=== PATIENT | male | born 1965 | race Caucasian/White ===

== ENCOUNTER 2019-06-03 09:21 | Inpatient (IN) | payer OTHER ==
[2019-06-03] MEDS: SOD CHLORIDE 0.9% 1,000 ML IV (10:22)
[2019-06-03] MEDS: PANTOPRAZOLE 40 MG INJ IV (10:22)
[2019-06-03] MEDS: ONDANSETRON 4 MG INJ IV ×2 (10:22→16:02)
[2019-06-03] MEDS: LORAZEPAM 2 MG INJ IV ×2 (10:22→19:45)
[2019-06-03 10:33] LABS: ANION GAP 28 (5-13); Estimated GFR > 60 mL/min (>60)
[2019-06-03 10:34] LABS: BLOOD UREA NITROGEN 33 mg/dl (7-20); CALCIUM 7.7 mg/dl (8.4-10.2); CARBON DIOXIDE 15 mmol/L (21-31); CHLORIDE 92 mmol/L (97-110); GLUCOSE 98 mg/dl (70-220); POTASSIUM 3.4 mmol/L (3.5-5.1); SODIUM 135 mmol/L (135-144)
[2019-06-03 10:46] LABS: TROPONIN-I < 0.012 ng/ml (0.000-0.120)
[2019-06-03 11:36] LABS: WHITE BLOOD COUNT 8.8 10^3/ul (4.8-10.8)
[2019-06-03 11:36] LABS: ABNORMAL IP MESSAGE 1; HEMATOCRIT 8.7 % (42.0-52.0); MEAN CORPUSCULAR HEMOGLOBIN 18.2 pg (29.0-33.0); MEAN CORPUSCULAR HGB CONC 25.3 g/dl (32.0-37.0); MEAN CORPUSCULAR VOLUME 71.9 fl (82.0-101.0); MEAN PLATELET VOLUME 10.6 fl (7.4-10.4); NUCLEATED RED BLOOD CELLS% 1.1 /100WBC (0.0-0.0); PLATELET COUNT 171 10^3/UL (140-415); POSITIVE DIFF @See below; RED BLOOD COUNT 1.21 10^6/ul (4.70-6.10); RED CELL DISTRIBUTION WIDTH 23.9 % (11.5-14.5)
[2019-06-03 11:40] LABS: ADD MAN DIFF? YES; HEMOGLOBIN 2.2 g/dl (14.0-18.0); PATH REVIEW? YES
[2019-06-03 12:11] LABS: ANISOCYTOSIS 2+ (0-0); BAND NEUTROPHILS % (M) 1 % (0-4); ERYTHROBLAST% (NRBC) (M) 1 % (0-0); HYPOCHROMASIA 3+ (0-0); LYMPHOCYTES #M 0.4 10^3/ul (0.8-2.9); LYMPHOCYTES % (M) 5 % (15-51); MICROCYTOSIS 2+ (0-0); MONOCYTE #M 0.7 10^3/ul (0.3-0.9); MONOCYTES % (M) 9 % (0-11); PLATELET ESTIMATE NORMAL; POIKILOCYTOSIS 1+ (0-0); POLYCHROMASIA 3+ (0-0); SEG NEUT #M 7.5 10^3/ul (1.6-7.5); SEGMENTED NEUTROPHILS (M) % 85 % (39-77); SMUDGE%M 2 % (0-0); TEAR DROP CELLS 1+ (0-0)
[2019-06-03] MEDS: CALCIUM GLUCONATE 10% 1 GM in DEXTROSE 5% 100 ML IVPB (12:13)
[2019-06-03] MEDS: OCTREOTIDE 50 MCG in SOD CHLORIDE 0.9% 25 ML IVPB (12:40)
[2019-06-03] MEDS: PANTOPRAZOLE IV 80 MG in SOD CHLORIDE 0.9% 100 ML IV ×2 (12:40→14:00)
[2019-06-03] MEDS: OCTREOTIDE 500 MCG in SOD CHLORIDE 0.9% 49 ML IV (13:04)
[2019-06-03 13:08] LABS: INR 1.68; PROTIME 19.9 Sec (11.9-14.9); PT RATIO 1.6
[2019-06-03 13:09] LABS: PARTIAL THROMBOPLASTIN TIME 36.7 Sec (23.0-35.0)
[2019-06-03] MEDS ORDERED: ALBUTEROL 0.083% (NEB) 2.5 MG/3 ML AMP NEB (13:30)
[2019-06-03 13:36] LABS: ALANINE AMINOTRANSFERASE 35 IU/L (13-69); ALBUMIN 3.2 g/dl (3.3-4.9); ALKALINE PHOSPHATASE 70 IU/L (42-121); ASPARTATE AMINO TRANSFERASE 74 IU/L (15-46); BILIRUBIN,INDIRECT 0.7 mg/dl (0-1.1); BILIRUBIN,TOTAL 0.7 mg/dl (0.2-1.3); TOTAL PROTEIN 6.4 g/dl (6.1-8.1)
[2019-06-03] MEDS: CEFTRIAXONE 1 GM/50 ML (PMX) 50 ML IVPB (13:52)
[2019-06-03] MEDS: OCTREOTIDE 1 MG in DEXTROSE 5% 95 ML IV ×2 (14:00→20:44)
[2019-06-03 15:47] LABS: IMMEDIATE SPIN CROSSMATCH 1
[2019-06-03] MEDS: D5W-0.45 NACL + KCL 20 MEQ 1,000 ML IV (15:51)
[2019-06-03 16:37] LABS: CREATINE KINASE 128 IU/L (23-200)
[2019-06-03 16:46] LABS: CK INDEX 2.2
[2019-06-03 16:48] LABS: CK-MB 2.76 ng/ml (0.0-2.4)
[2019-06-03 16:51] LABS: TROPONIN-I < 0.012 ng/ml (0.000-0.120)
[2019-06-03] MEDS: FUROSEMIDE 20 MG INJ IV (19:26)
[2019-06-03 19:31] LABS: LACTIC ACID 2.7 mmol/L (0.5-2.0)
[2019-06-03 21:46] LABS: CREATINE KINASE 159 IU/L (23-200)
[2019-06-03 21:59] LABS: CK INDEX 1.8; TROPONIN-I < 0.012 ng/ml (0.000-0.120)
[2019-06-03 22:00] LABS: CK-MB 2.93 ng/ml (0.0-2.4)
[2019-06-04] MEDS: PANTOPRAZOLE IV 80 MG in SOD CHLORIDE 0.9% 100 ML IV ×3 (00:22→20:55)
[2019-06-04 01:02] LABS: HEMATOCRIT 27.6 % (42.0-52.0); HEMOGLOBIN 8.9 g/dl (14.0-18.0)
[2019-06-04 01:13] LABS: LACTIC ACID 1.5 mmol/L (0.5-2.0)
[2019-06-04 05:21] LABS: ADD MAN DIFF? NO
[2019-06-04 05:29] LABS: ABNORMAL IP MESSAGE 1; BASOPHILS % 0.1 % (0.0-2.0); HEMATOCRIT 28.8 % (42.0-52.0); HEMOGLOBIN 9.3 g/dl (14.0-18.0); LYMPHOCYTES # 0.5 10^3/ul (0.8-2.9); LYMPHOCYTES % 6.7 % (15.0-51.0); MEAN CORPUSCULAR HEMOGLOBIN 25.3 pg (29.0-33.0); MEAN CORPUSCULAR HGB CONC 32.3 g/dl (32.0-37.0); MEAN CORPUSCULAR VOLUME 78.3 fl (82.0-101.0); MEAN PLATELET VOLUME 9.5 fl (7.4-10.4); MONOCYTE # 0.7 10^3/ul (0.3-0.9); MONOCYTES % 8.9 % (0.0-11.0); NEUTROPHIL # 6.1 10^3/ul (1.6-7.5); NEUTROPHILS % 83.8 % (39.0-77.0); NUCLEATED RED BLOOD CELLS # 0.1 10^3/ul (0.0-0.0); NUCLEATED RED BLOOD CELLS% 1.9 /100WBC (0.0-0.0); POSITIVE DIFF @See below; RED BLOOD COUNT 3.68 10^6/ul (4.70-6.10); RED CELL DISTRIBUTION WIDTH 20.4 % (11.5-14.5)
[2019-06-04 05:29] LABS: WHITE BLOOD COUNT 7.3 10^3/ul (4.8-10.8)
[2019-06-04 05:41] LABS: LACTIC ACID 1.2 mmol/L (0.5-2.0)
[2019-06-04 05:58] LABS: ALANINE AMINOTRANSFERASE 58 IU/L (13-69); ALKALINE PHOSPHATASE 65 IU/L (42-121); ANION GAP 11 (5-13); ASPARTATE AMINO TRANSFERASE 132 IU/L (15-46); BILIRUBIN,INDIRECT 1.1 mg/dl (0-1.1); BILIRUBIN,TOTAL 1.1 mg/dl (0.2-1.3); BLOOD UREA NITROGEN 32 mg/dl (7-20); CALCIUM 7.3 mg/dl (8.4-10.2); CARBON DIOXIDE 29 mmol/L (21-31); CHLORIDE 97 mmol/L (97-110); CREATININE 0.92 mg/dl (0.61-1.24); Estimated GFR > 60 mL/min (>60); GLUCOSE 146 mg/dl (70-220); POTASSIUM 3.1 mmol/L (3.5-5.1); SODIUM 137 mmol/L (135-144); TOTAL PROTEIN 6.3 g/dl (6.1-8.1)
[2019-06-04 06:08] LABS: MAGNESIUM 0.7 mg/dl (1.7-2.5)
[2019-06-04] MEDS: POTASSIUM CHLORIDE 100 ML IVPB ×3 (08:30→10:59)
[2019-06-04] MEDS: MAGNESIUM SULFATE 4 GM/100 ML 100 ML IVPB (08:32)
[2019-06-04] MEDS: FUROSEMIDE 20 MG INJ IV (08:32)
[2019-06-04] MEDS: ENALAPRILAT 1.25 MG INJ IV (08:33)
[2019-06-04] MEDS: D5W-0.45 NACL + KCL 20 MEQ 1,000 ML IV (08:33)
[2019-06-04 08:43] LABS: ANISOCYTOSIS 1+ (0-0); BAND NEUTROPHILS #M 0.1 10^3/ul (0.0-0.6); BAND NEUTROPHILS % (M) 2 % (0-4); ERYTHROBLAST% (NRBC) (M) 7 % (0-0); HYPOCHROMASIA 1+ (0-0); LYMPHOCYTES #M 0.4 10^3/ul (0.8-2.9); LYMPHOCYTES % (M) 6 % (15-51); MICROCYTOSIS 1+ (0-0); OVALOCYTES 1+ (0-0); PLATELET ESTIMATE DECREASED; POIKILOCYTOSIS 1+ (0-0); POLYCHROMASIA 3+ (0-0); SEG NEUT #M 6.7 10^3/ul (1.6-7.5); SEGMENTED NEUTROPHILS (M) % 92 % (39-77); SMUDGE%M 10 % (0-0); TARGET CELLS 1+ (0-0)
[2019-06-04 11:22] LABS: PLATELET COUNT 90 10^3/UL (140-415)
[2019-06-04 14:40] LABS: ANION GAP 6 (5-13); BLOOD UREA NITROGEN 26 mg/dl (7-20); CALCIUM 6.7 mg/dl (8.4-10.2); CARBON DIOXIDE 30 mmol/L (21-31); CHLORIDE 95 mmol/L (97-110); CREATININE 0.78 mg/dl (0.61-1.24); Estimated GFR > 60 mL/min (>60); GLUCOSE 260 mg/dl (70-220); MAGNESIUM 1.5 mg/dl (1.7-2.5); SODIUM 131 mmol/L (135-144)
[2019-06-04 14:41] LABS: POTASSIUM 2.8 mmol/L (3.5-5.1)
[2019-06-04] MEDS: MAGNESIUM CITRATE 300 ML BTL PO ×2 (15:00→20:55)
[2019-06-04] MEDS: MAGNESIUM SULFATE 2 GM/50 ML 50 ML IVPB (15:55)
[2019-06-04] MEDS: OCTREOTIDE 1 MG in DEXTROSE 5% 95 ML IV (15:55)
[2019-06-04 17:21] LABS: POTASSIUM 3.3 mmol/L (3.5-5.1)
[2019-06-04] MEDS: POLYETHYLENE GLYCOL 3350 119 GM POWDER PO ×2 (17:57→18:41)
[2019-06-05] MEDS: PANTOPRAZOLE IV 80 MG in SOD CHLORIDE 0.9% 100 ML IV ×2 (05:45→16:25)
[2019-06-05] MEDS: hydrALAzine 20 MG INJ IV ×2 (05:46→12:40)
[2019-06-05 06:22] LABS: ADD MAN DIFF? NO
[2019-06-05 06:24] LABS: ABNORMAL IP MESSAGE 1; BASOPHILS % 0.3 % (0.0-2.0); EOSINOPHILS % 0.3 % (0.0-7.0); HEMATOCRIT 29.5 % (42.0-52.0); HEMOGLOBIN 9.4 g/dl (14.0-18.0); LYMPHOCYTES # 0.5 10^3/ul (0.8-2.9); LYMPHOCYTES % 6.1 % (15.0-51.0); MEAN CORPUSCULAR HEMOGLOBIN 25.5 pg (29.0-33.0); MEAN CORPUSCULAR HGB CONC 31.9 g/dl (32.0-37.0); MEAN CORPUSCULAR VOLUME 80.2 fl (82.0-101.0); MONOCYTE # 0.8 10^3/ul (0.3-0.9); MONOCYTES % 11.3 % (0.0-11.0); NEUTROPHILS % 81.5 % (39.0-77.0); NUCLEATED RED BLOOD CELLS # 0.1 10^3/ul (0.0-0.0); NUCLEATED RED BLOOD CELLS% 0.8 /100WBC (0.0-0.0); POSITIVE DIFF @See below; RED BLOOD COUNT 3.68 10^6/ul (4.70-6.10); RED CELL DISTRIBUTION WIDTH 20.7 % (11.5-14.5)
[2019-06-05 06:24] LABS: WHITE BLOOD COUNT 7.4 10^3/ul (4.8-10.8)
[2019-06-05 06:34] LABS: PLATELET COUNT 94 10^3/UL (140-415)
[2019-06-05 06:47] LABS: ALANINE AMINOTRANSFERASE 49 IU/L (13-69); ALBUMIN/GLOBULIN RATIO 0.83; ALKALINE PHOSPHATASE 74 IU/L (42-121); ANION GAP 4 (5-13); ASPARTATE AMINO TRANSFERASE 76 IU/L (15-46); BILIRUBIN,INDIRECT 1.1 mg/dl (0-1.1); BILIRUBIN,TOTAL 1.1 mg/dl (0.2-1.3); BLOOD UREA NITROGEN 18 mg/dl (7-20); CALCIUM 7.2 mg/dl (8.4-10.2); CARBON DIOXIDE 32 mmol/L (21-31); CHLORIDE 100 mmol/L (97-110); CREATININE 0.65 mg/dl (0.61-1.24); Estimated GFR > 60 mL/min (>60); GLUCOSE 128 mg/dl (70-220); MAGNESIUM 1.5 mg/dl (1.7-2.5); SODIUM 136 mmol/L (135-144); TOTAL PROTEIN 6.6 g/dl (6.1-8.1)
[2019-06-05 07:16] LABS: POTASSIUM 2.9 mmol/L (3.5-5.1)
[2019-06-05] MEDS: POTASSIUM CHLORIDE (SR) 20 MEQ TAB PO (08:00)
[2019-06-05] MEDS: FUROSEMIDE 20 MG INJ IV (10:05)
[2019-06-05] MEDS: D5W-0.45 NACL + KCL 20 MEQ 1,000 ML IV (10:07)
[2019-06-05 11:46] LABS: IMMEDIATE SPIN CROSSMATCH 1 5
[2019-06-05] MEDS: SOD CHLORIDE 0.9% 250 ML IV* (11:57)
[2019-06-05] MEDS: POTASSIUM CHLORIDE 100 ML IVPB ×3 (12:09→16:57)
[2019-06-06] MEDS: PANTOPRAZOLE IV 80 MG in SOD CHLORIDE 0.9% 100 ML IV ×3 (03:29→21:31)
[2019-06-06] MEDS: OCTREOTIDE 1 MG in DEXTROSE 5% 95 ML IV ×2 (03:29→21:19)
[2019-06-06] MEDS: hydrALAzine 20 MG INJ IV (04:22)
[2019-06-06 06:35] LABS: ADD MAN DIFF? NO
[2019-06-06 06:44] LABS: WHITE BLOOD COUNT 7.5 10^3/ul (4.8-10.8)
[2019-06-06 06:44] LABS: ABNORMAL IP MESSAGE 1; BASOPHILS % 0.4 % (0.0-2.0); EOSINOPHILS % 0.4 % (0.0-7.0); HEMATOCRIT 29.4 % (42.0-52.0); HEMOGLOBIN 9.1 g/dl (14.0-18.0); LYMPHOCYTES # 0.5 10^3/ul (0.8-2.9); LYMPHOCYTES % 6.4 % (15.0-51.0); MEAN CORPUSCULAR HEMOGLOBIN 25.5 pg (29.0-33.0); MEAN CORPUSCULAR VOLUME 82.4 fl (82.0-101.0); MEAN PLATELET VOLUME 10.4 fl (7.4-10.4); MONOCYTES % 12.7 % (0.0-11.0); NEUTROPHILS % 79.6 % (39.0-77.0); NUCLEATED RED BLOOD CELLS% 0.3 /100WBC (0.0-0.0); PLATELET COUNT 96 10^3/UL (140-415); POSITIVE DIFF @See below; RED BLOOD COUNT 3.57 10^6/ul (4.70-6.10); RED CELL DISTRIBUTION WIDTH 21.2 % (11.5-14.5)
[2019-06-06 07:29] LABS: ALANINE AMINOTRANSFERASE 47 IU/L (13-69); ALBUMIN 3.2 g/dl (3.3-4.9); ALBUMIN/GLOBULIN RATIO 0.86; ALKALINE PHOSPHATASE 83 IU/L (42-121); ANION GAP 8 (5-13); ASPARTATE AMINO TRANSFERASE 77 IU/L (15-46); BILIRUBIN,INDIRECT 1.2 mg/dl (0-1.1); BILIRUBIN,TOTAL 1.2 mg/dl (0.2-1.3); BLOOD UREA NITROGEN 10 mg/dl (7-20); CALCIUM 7.2 mg/dl (8.4-10.2); CARBON DIOXIDE 30 mmol/L (21-31); CHLORIDE 98 mmol/L (97-110); CREATININE 0.65 mg/dl (0.61-1.24); Estimated GFR > 60 mL/min (>60); GLUCOSE 124 mg/dl (70-220); MAGNESIUM 1.1 mg/dl (1.7-2.5); POTASSIUM 3.2 mmol/L (3.5-5.1); SODIUM 136 mmol/L (135-144); TOTAL PROTEIN 6.9 g/dl (6.1-8.1)
[2019-06-06] MEDS: FUROSEMIDE 20 MG INJ IV ×2 (08:53→11:42)
[2019-06-06] MEDS: D5W-0.45 NACL + KCL 20 MEQ 1,000 ML IV (09:04)
[2019-06-06] MEDS: ONDANSETRON 4 MG INJ IV (09:04)
[2019-06-06] MEDS: POTASSIUM CHLORIDE 100 ML IVPB ×3 (10:03→13:59)
[2019-06-06] MEDS: MAGNESIUM SULFATE 3 GM in DEXTROSE 5% 100 ML IVPB (11:47)
[2019-06-06 15:47] LABS: INR 1.23; PROTIME 15.6 Sec (11.9-14.9); PT RATIO 1.2
[2019-06-06 16:27] LABS: CREATININE,URINE RANDOM 28.94 mg/dl (20-370)
[2019-06-06 16:27] LABS: SODIUM,URINE RANDOM 126 mmol/L (30-90)
[2019-06-06 17:13] LABS: ADD UMIC YES; UR ASCORBIC ACID NEGATIVE (NEGATIVE); UR BILIRUBIN (Dip) NEGATIVE (NEGATIVE); UR BLOOD (Dip) 2+ mg/dL (NEGATIVE); UR CLARITY CLEAR (CLEAR); UR COLOR YELLOW (YELLOW); UR GLUCOSE (Dip) NEGATIVE (NEGATIVE); UR KETONES (Dip) NEGATIVE (NEGATIVE); UR LEUKOCYTE ESTERASE (Dip) NEGATIVE Leu/ul (NEGATIVE); UR NITRITE (Dip) NEGATIVE (NEGATIVE); UR RBC 39 /HPF (0-5); UR SPECIFIC GRAVITY (Dip) 1.006 (1.003-1.030); UR TOTAL PROTEIN (Dip) NEGATIVE (NEGATIVE); UR UROBILINOGEN (Dip) NEGATIVE (NEGATIVE); UR WBC 0 /HPF (0-5)
[2019-06-06] MEDS: PROPOFOL 40 ML (18:25)
[2019-06-06] MEDS: LIDOCAINE 2% (SDV) 5 ML INJ (18:25)
[2019-06-06] MEDS ORDERED: EPHEDrine 25 MG/5 ML SYG IV (19:00)
[2019-06-06] MEDS ORDERED: ALBUTEROL 0.083% (NEB) 2.5 MG/3 ML AMP HHN (19:00)
[2019-06-06] MEDS ORDERED: FENTAnyl 50 MCG/ML VIAL IV (19:00)
[2019-06-06] MEDS ORDERED: ONDANSETRON 4 MG INJ IV (19:00)
[2019-06-06] MEDS ORDERED: hydrALAzine 20 MG INJ IV (19:00)
[2019-06-06] MEDS ORDERED: LABETALOL HCL 20MG INJ IV (19:00)
[2019-06-06] MEDS: POLYETHYLENE GLYCOL 3350 119 GM POWDER PO (21:18)
[2019-06-06] MEDS: MAGNESIUM CITRATE 300 ML BTL PO (21:18)
[2019-06-06] MEDS: BISACODYL (EC) 5 MG TAB PO (21:19)
[2019-06-07] MEDS ORDERED: DIPHENHYDRAMINE 25 MG CAP PO (01:00)
[2019-06-07] MEDS: POLYETHYLENE GLYCOL 3350 119 GM POWDER PO (05:23)
[2019-06-07 06:07] LABS: ADD MAN DIFF? NO
[2019-06-07 06:13] LABS: WHITE BLOOD COUNT 7.8 10^3/ul (4.8-10.8)
[2019-06-07 06:13] LABS: ABNORMAL IP MESSAGE 1; BASOPHILS % 0.4 % (0.0-2.0); EOSINOPHILS # 0.1 10^3/ul (0.0-0.5); HEMOGLOBIN 9.7 g/dl (14.0-18.0); LYMPHOCYTES # 0.8 10^3/ul (0.8-2.9); LYMPHOCYTES % 9.8 % (15.0-51.0); MEAN CORPUSCULAR HEMOGLOBIN 25.4 pg (29.0-33.0); MEAN CORPUSCULAR HGB CONC 30.3 g/dl (32.0-37.0); MEAN CORPUSCULAR VOLUME 83.8 fl (82.0-101.0); MEAN PLATELET VOLUME 10.3 fl (7.4-10.4); MONOCYTE # 1.2 10^3/ul (0.3-0.9); MONOCYTES % 15.9 % (0.0-11.0); NEUTROPHIL # 5.6 10^3/ul (1.6-7.5); NEUTROPHILS % 72.4 % (39.0-77.0); PLATELET COUNT 107 10^3/UL (140-415); POSITIVE DIFF @See below; RED BLOOD COUNT 3.82 10^6/ul (4.70-6.10); RED CELL DISTRIBUTION WIDTH 21.1 % (11.5-14.5)
[2019-06-07 06:32] LABS: ANION GAP 6 (5-13); BLOOD UREA NITROGEN 11 mg/dl (7-20); CALCIUM 7.3 mg/dl (8.4-10.2); CARBON DIOXIDE 33 mmol/L (21-31); CHLORIDE 97 mmol/L (97-110); CREATININE 0.62 mg/dl (0.61-1.24); Estimated GFR > 60 mL/min (>60); GLUCOSE 118 mg/dl (70-220); MAGNESIUM 1.5 mg/dl (1.7-2.5); PHOSPHORUS 2.7 mg/dl (2.5-4.9); SODIUM 136 mmol/L (135-144)
[2019-06-07] MEDS: FUROSEMIDE 20 MG INJ IV (08:40)
[2019-06-07] MEDS: MAGNESIUM SULFATE 2 GM/50 ML 50 ML IVPB (08:45)
[2019-06-07] MEDS: BISACODYL (EC) 5 MG TAB PO (08:50)
[2019-06-07] MEDS: D5W-0.45 NACL + KCL 20 MEQ 1,000 ML IV (09:51)
[2019-06-07] MEDS: PANTOPRAZOLE IV 80 MG in SOD CHLORIDE 0.9% 100 ML IV (10:01)
[2019-06-07] MEDS: SPIRONOLACTONE 25 MG TAB PO (11:00)
[2019-06-07] MEDS: LIDOCAINE 1% (MPF) 5 ML VIAL (13:34)
[2019-06-07] MEDS ORDERED: LORAZEPAM 2 MG INJ IV (16:30)
[2019-06-07] MEDS: LORAZEPAM 2 MG INJ IV ×2 (16:37→19:08)
[2019-06-07 16:47] LABS: CREATININE, RANDOM URINE 30 mg/dL (20-320); MICROALBUMIN/CREATININE RATIO 33 (<30)
[2019-06-07 16:51] LABS: ETHANOL < 10.0 mg/dl (0-0)
[2019-06-07] MEDS: LIDOCAINE 2% (SDV) 5 ML INJ (16:51)
[2019-06-07] MEDS: MIDAZOLAM 1 MG/ML 2 ML INJ (16:56)
[2019-06-07] MEDS: PANTOPRAZOLE (EC) 40 MG TAB PO (17:48)
[2019-06-07] MEDS: MIDAZOLAM 1 MG/ML 2 ML INJ IV (18:22)
[2019-06-08] MEDS: LORAZEPAM 2 MG INJ IV ×6 (00:28→20:53)
[2019-06-08] MEDS: D5W-0.45 NACL + KCL 20 MEQ 1,000 ML IV (00:37)
[2019-06-08] MEDS: hydrALAzine 20 MG INJ IV (05:08)
[2019-06-08] MEDS: PANTOPRAZOLE (EC) 40 MG TAB PO ×2 (05:33→18:12)
[2019-06-08 06:47] LABS: ADD MAN DIFF? NO
[2019-06-08 06:58] LABS: WHITE BLOOD COUNT 6.7 10^3/ul (4.8-10.8)
[2019-06-08 06:58] LABS: BASOPHIL # 0.1 10^3/ul (0.0-0.1); BASOPHILS % 0.7 % (0.0-2.0); EOSINOPHILS # 0.1 10^3/ul (0.0-0.5); EOSINOPHILS % 1.5 % (0.0-7.0); HEMATOCRIT 31.5 % (42.0-52.0); HEMOGLOBIN 9.6 g/dl (14.0-18.0); LYMPHOCYTES # 0.7 10^3/ul (0.8-2.9); MEAN CORPUSCULAR HEMOGLOBIN 25.5 pg (29.0-33.0); MEAN CORPUSCULAR HGB CONC 30.5 g/dl (32.0-37.0); MEAN CORPUSCULAR VOLUME 83.8 fl (82.0-101.0); MONOCYTES % 14.7 % (0.0-11.0); NEUTROPHIL # 4.8 10^3/ul (1.6-7.5); NEUTROPHILS % 71.7 % (39.0-77.0); PLATELET COUNT 118 10^3/UL (140-415); RED BLOOD COUNT 3.76 10^6/ul (4.70-6.10); RED CELL DISTRIBUTION WIDTH 21.1 % (11.5-14.5)
[2019-06-08 07:17] LABS: ANION GAP 7 (5-13); BLOOD UREA NITROGEN 10 mg/dl (7-20); CALCIUM 7.7 mg/dl (8.4-10.2); CARBON DIOXIDE 30 mmol/L (21-31); CHLORIDE 98 mmol/L (97-110); CREATININE 0.56 mg/dl (0.61-1.24); Estimated GFR > 60 mL/min (>60); GLUCOSE 107 mg/dl (70-220); MAGNESIUM 1.2 mg/dl (1.7-2.5); PHOSPHORUS 3.4 mg/dl (2.5-4.9); POTASSIUM 3.8 mmol/L (3.5-5.1); SODIUM 135 mmol/L (135-144)
[2019-06-08 07:18] LABS: CREATINE KINASE 75 IU/L (23-200)
[2019-06-08] MEDS: FUROSEMIDE 20 MG INJ IV (08:44)
[2019-06-08] MEDS: MAGNESIUM SULFATE 2 GM/50 ML 50 ML IVPB (08:44)
[2019-06-08] MEDS: SPIRONOLACTONE 25 MG TAB PO (08:47)
[2019-06-08] MEDS: DEXTROSE 5%-0.45% NACL 1,000 ML IV (10:34)
[2019-06-08] MEDS: MULTIVITAMINS 10 ML, THIAMINE 100 MG, FOLIC ACID 1 MG in SOD CHLORIDE 0.9% 1,000 ML IVPB (12:47)
[2019-06-08] MEDS: CHLORDIAZEPOXIDE 25 MG CAP PO ×2 (13:41→20:06)
[2019-06-09] MEDS: DEXTROSE 5%-0.45% NACL 1,000 ML IV (00:23)
[2019-06-09] MEDS: LORAZEPAM 2 MG INJ IV ×2 (03:04→16:45)
[2019-06-09] MEDS: PANTOPRAZOLE (EC) 40 MG TAB PO ×2 (05:36→17:48)
[2019-06-09 06:45] LABS: ADD MAN DIFF? NO
[2019-06-09 06:56] LABS: WHITE BLOOD COUNT 5.9 10^3/ul (4.8-10.8)
[2019-06-09 06:57] LABS: ABNORMAL IP MESSAGE 1; BASOPHILS % 0.5 % (0.0-2.0); EOSINOPHILS # 0.1 10^3/ul (0.0-0.5); EOSINOPHILS % 1.5 % (0.0-7.0); HEMATOCRIT 32.4 % (42.0-52.0); HEMOGLOBIN 9.8 g/dl (14.0-18.0); LYMPHOCYTES # 0.8 10^3/ul (0.8-2.9); LYMPHOCYTES % 13.8 % (15.0-51.0); MEAN CORPUSCULAR HGB CONC 30.2 g/dl (32.0-37.0); MEAN CORPUSCULAR VOLUME 82.7 fl (82.0-101.0); MEAN PLATELET VOLUME 11.4 fl (7.4-10.4); MONOCYTE # 0.9 10^3/ul (0.3-0.9); MONOCYTES % 14.9 % (0.0-11.0); NEUTROPHILS % 68.8 % (39.0-77.0); PLATELET COUNT 148 10^3/UL (140-415); POSITIVE DIFF @See below; RED BLOOD COUNT 3.92 10^6/ul (4.70-6.10); RED CELL DISTRIBUTION WIDTH 21.1 % (11.5-14.5)
[2019-06-09 07:14] LABS: ANION GAP 8 (5-13); BLOOD UREA NITROGEN 9 mg/dl (7-20); CALCIUM 8.2 mg/dl (8.4-10.2); CARBON DIOXIDE 30 mmol/L (21-31); CHLORIDE 96 mmol/L (97-110); Estimated GFR > 60 mL/min (>60); GLUCOSE 90 mg/dl (70-220); PHOSPHORUS 3.5 mg/dl (2.5-4.9); POTASSIUM 3.2 mmol/L (3.5-5.1); SODIUM 134 mmol/L (135-144)
[2019-06-09] MEDS: POTASSIUM CHLORIDE (SR) 20 MEQ TAB PO (08:21)
[2019-06-09] MEDS: FUROSEMIDE 20 MG INJ IV (08:21)
[2019-06-09] MEDS: SPIRONOLACTONE 25 MG TAB PO (08:21)
[2019-06-09] MEDS: MAGNESIUM SULFATE 2 GM/50 ML 50 ML IVPB ×2 (08:21→10:56)
[2019-06-09] MEDS: FOLIC ACID 1 MG TAB PO (10:20)
[2019-06-09] MEDS: THIAMINE 100 MG TAB PO (10:20)
[2019-06-09 11:29] LABS: AMMONIA < 9 umol/l (9-30)
[2019-06-09] MEDS: CYANOCOBALAMIN 100 MCG TAB PO (13:40)
[2019-06-09] MEDS: CHLORDIAZEPOXIDE 25 MG CAP PO ×2 (15:00→21:47)
[2019-06-10] MEDS: PANTOPRAZOLE (EC) 40 MG TAB PO ×2 (05:48→17:57)
[2019-06-10] MEDS: FUROSEMIDE 40 MG TAB PO (05:51)
[2019-06-10 07:33] LABS: ADD MAN DIFF? NO
[2019-06-10 07:43] LABS: ABNORMAL IP MESSAGE 1; BASOPHIL # 0.1 10^3/ul (0.0-0.1); BASOPHILS % 0.7 % (0.0-2.0); EOSINOPHILS # 0.1 10^3/ul (0.0-0.5); EOSINOPHILS % 0.9 % (0.0-7.0); HEMATOCRIT 31.8 % (42.0-52.0); HEMOGLOBIN 9.8 g/dl (14.0-18.0); LYMPHOCYTES # 0.9 10^3/ul (0.8-2.9); LYMPHOCYTES % 13.4 % (15.0-51.0); MEAN CORPUSCULAR HEMOGLOBIN 25.3 pg (29.0-33.0); MEAN CORPUSCULAR HGB CONC 30.8 g/dl (32.0-37.0); MEAN PLATELET VOLUME 10.8 fl (7.4-10.4); MONOCYTES % 14.9 % (0.0-11.0); NEUTROPHIL # 4.7 10^3/ul (1.6-7.5); NEUTROPHILS % 69.5 % (39.0-77.0); PLATELET COUNT 166 10^3/UL (140-415); POSITIVE DIFF @See below; RED BLOOD COUNT 3.88 10^6/ul (4.70-6.10)
[2019-06-10 07:43] LABS: WHITE BLOOD COUNT 6.7 10^3/ul (4.8-10.8)
[2019-06-10 08:03] LABS: PHOSPHORUS 3.6 mg/dl (2.5-4.9)
[2019-06-10 08:04] LABS: ALANINE AMINOTRANSFERASE 46 IU/L (13-69); ALBUMIN 2.9 g/dl (3.3-4.9); ALBUMIN/GLOBULIN RATIO 0.78; ALKALINE PHOSPHATASE 105 IU/L (42-121); ANION GAP 9 (5-13); ASPARTATE AMINO TRANSFERASE 59 IU/L (15-46); BILIRUBIN,INDIRECT 0.9 mg/dl (0-1.1); BILIRUBIN,TOTAL 0.9 mg/dl (0.2-1.3); BLOOD UREA NITROGEN 8 mg/dl (7-20); CALCIUM 8.3 mg/dl (8.4-10.2); CARBON DIOXIDE 25 mmol/L (21-31); CHLORIDE 97 mmol/L (97-110); Estimated GFR > 60 mL/min (>60); GLUCOSE 88 mg/dl (70-220); POTASSIUM 3.7 mmol/L (3.5-5.1); SODIUM 131 mmol/L (135-144); TOTAL PROTEIN 6.6 g/dl (6.1-8.1)
[2019-06-10] MEDS: MAGNESIUM OXIDE 400 MG TAB PO (08:37)
[2019-06-10] MEDS: MAGNESIUM SULFATE 2 GM/50 ML 50 ML IVPB (08:38)
[2019-06-10] MEDS: CYANOCOBALAMIN 100 MCG TAB PO (09:54)
[2019-06-10] MEDS: FOLIC ACID 1 MG TAB PO (09:54)
[2019-06-10] MEDS: SPIRONOLACTONE 25 MG TAB PO (09:54)
[2019-06-10] MEDS: CHLORDIAZEPOXIDE 25 MG CAP PO (09:54)
[2019-06-10] MEDS: THIAMINE 100 MG TAB PO (09:54)
[2019-06-10] MEDS: CHLORDIAZEPOXIDE 5 MG CAP PO ×2 (14:25→21:57)
[2019-06-11] MEDS: FUROSEMIDE 40 MG TAB PO (06:07)
[2019-06-11] MEDS: PANTOPRAZOLE (EC) 40 MG TAB PO ×2 (06:07→18:39)
[2019-06-11 06:13] LABS: ADD MAN DIFF? NO
[2019-06-11 06:27] LABS: WHITE BLOOD COUNT 6.6 10^3/ul (4.8-10.8)
[2019-06-11 06:27] LABS: ABNORMAL IP MESSAGE 1; BASOPHILS % 0.5 % (0.0-2.0); EOSINOPHILS # 0.1 10^3/ul (0.0-0.5); EOSINOPHILS % 0.9 % (0.0-7.0); HEMATOCRIT 31.1 % (42.0-52.0); HEMOGLOBIN 9.7 g/dl (14.0-18.0); LYMPHOCYTES # 0.8 10^3/ul (0.8-2.9); LYMPHOCYTES % 11.4 % (15.0-51.0); MEAN CORPUSCULAR HEMOGLOBIN 25.6 pg (29.0-33.0); MEAN CORPUSCULAR HGB CONC 31.2 g/dl (32.0-37.0); MEAN CORPUSCULAR VOLUME 82.1 fl (82.0-101.0); MEAN PLATELET VOLUME 11.2 fl (7.4-10.4); MONOCYTES % 15.1 % (0.0-11.0); NEUTROPHIL # 4.7 10^3/ul (1.6-7.5); NEUTROPHILS % 71.6 % (39.0-77.0); PLATELET COUNT 188 10^3/UL (140-415); POSITIVE DIFF @See below; RED BLOOD COUNT 3.79 10^6/ul (4.70-6.10)
[2019-06-11 07:14] LABS: ANION GAP 8 (5-13); BLOOD UREA NITROGEN 11 mg/dl (7-20); CALCIUM 8.9 mg/dl (8.4-10.2); CARBON DIOXIDE 30 mmol/L (21-31); CHLORIDE 95 mmol/L (97-110); CREATININE 0.67 mg/dl (0.61-1.24); Estimated GFR > 60 mL/min (>60); GLUCOSE 96 mg/dl (70-220); PHOSPHORUS 4.5 mg/dl (2.5-4.9); POTASSIUM 3.5 mmol/L (3.5-5.1); SODIUM 133 mmol/L (135-144)
[2019-06-11] MEDS: MAGNESIUM SULFATE 2 GM/50 ML 50 ML IVPB (08:23)
[2019-06-11] MEDS: FOLIC ACID 1 MG TAB PO (08:27)
[2019-06-11] MEDS: CYANOCOBALAMIN 100 MCG TAB PO (08:27)
[2019-06-11] MEDS: SPIRONOLACTONE 25 MG TAB PO (08:27)
[2019-06-11] MEDS: CHLORDIAZEPOXIDE 5 MG CAP PO ×3 (08:29→21:37)
[2019-06-11] MEDS: THIAMINE 100 MG TAB PO (08:29)
[2019-06-11] MEDS: ERYTHROMYCIN 1 GM OPH OINT BOTH EYES ×3 (15:28→21:37)
[2019-06-12] MEDS: FUROSEMIDE 40 MG TAB PO (06:57)
[2019-06-12 07:26] LABS: ANION GAP 9 (5-13); BLOOD UREA NITROGEN 14 mg/dl (7-20); CALCIUM 9.1 mg/dl (8.4-10.2); CARBON DIOXIDE 29 mmol/L (21-31); CHLORIDE 95 mmol/L (97-110); CREATININE 0.78 mg/dl (0.61-1.24); Estimated GFR > 60 mL/min (>60); GLUCOSE 100 mg/dl (70-220); PHOSPHORUS 4.5 mg/dl (2.5-4.9); POTASSIUM 3.4 mmol/L (3.5-5.1); SODIUM 133 mmol/L (135-144)
[2019-06-12] MEDS ORDERED: MAGNESIUM SULFATE 2 GM/50 ML 50 ML IVPB ×2 (08:30→13:00)
[2019-06-12] MEDS: CYANOCOBALAMIN 100 MCG TAB PO (09:37)
[2019-06-12] MEDS: CHLORDIAZEPOXIDE 5 MG CAP PO ×2 (09:37→21:06)
[2019-06-12] MEDS: THIAMINE 100 MG TAB PO (09:37)
[2019-06-12] MEDS: ERYTHROMYCIN 1 GM OPH OINT BOTH EYES ×4 (09:38→21:06)
[2019-06-12] MEDS: SPIRONOLACTONE 25 MG TAB PO (09:38)
[2019-06-12] MEDS: POTASSIUM CHLORIDE (SR) 20 MEQ TAB PO (09:38)
[2019-06-12] MEDS: FOLIC ACID 1 MG TAB PO (09:38)
[2019-06-12] MEDS: PANTOPRAZOLE (EC) 40 MG TAB PO ×2 (09:41→18:01)
[2019-06-12] MEDS: MAGNESIUM SULFATE 4 GM/100 ML 100 ML IVPB (09:41)
[2019-06-13 06:04] LABS: ADD MAN DIFF? NO
[2019-06-13 06:14] LABS: WHITE BLOOD COUNT 9.2 10^3/ul (4.8-10.8)
[2019-06-13 06:14] LABS: ABNORMAL IP MESSAGE 1; BASOPHILS % 0.4 % (0.0-2.0); EOSINOPHILS % 0.1 % (0.0-7.0); HEMATOCRIT 30.6 % (42.0-52.0); HEMOGLOBIN 9.5 g/dl (14.0-18.0); LYMPHOCYTES # 0.6 10^3/ul (0.8-2.9); LYMPHOCYTES % 6.2 % (15.0-51.0); MEAN CORPUSCULAR HEMOGLOBIN 25.5 pg (29.0-33.0); MEAN CORPUSCULAR VOLUME 82.3 fl (82.0-101.0); MEAN PLATELET VOLUME 11.1 fl (7.4-10.4); MONOCYTE # 1.1 10^3/ul (0.3-0.9); MONOCYTES % 12.4 % (0.0-11.0); NEUTROPHIL # 7.4 10^3/ul (1.6-7.5); NEUTROPHILS % 80.5 % (39.0-77.0); PLATELET COUNT 217 10^3/UL (140-415); POSITIVE DIFF @See below; RED BLOOD COUNT 3.72 10^6/ul (4.70-6.10)
[2019-06-13] MEDS: FUROSEMIDE 40 MG TAB PO (06:18)
[2019-06-13] MEDS: PANTOPRAZOLE (EC) 40 MG TAB PO ×2 (06:18→17:47)
[2019-06-13 06:37] LABS: ALANINE AMINOTRANSFERASE 40 IU/L (13-69); ALBUMIN 3.4 g/dl (3.3-4.9); ALBUMIN/GLOBULIN RATIO 0.87; ALKALINE PHOSPHATASE 119 IU/L (42-121); ANION GAP 8 (5-13); ASPARTATE AMINO TRANSFERASE 49 IU/L (15-46); BILIRUBIN,INDIRECT 0.9 mg/dl (0-1.1); BILIRUBIN,TOTAL 0.9 mg/dl (0.2-1.3); BLOOD UREA NITROGEN 15 mg/dl (7-20); CALCIUM 9.1 mg/dl (8.4-10.2); CARBON DIOXIDE 30 mmol/L (21-31); CHLORIDE 94 mmol/L (97-110); Estimated GFR > 60 mL/min (>60); GLUCOSE 109 mg/dl (70-220); MAGNESIUM 1.2 mg/dl (1.7-2.5); POTASSIUM 3.7 mmol/L (3.5-5.1); SODIUM 132 mmol/L (135-144); TOTAL PROTEIN 7.3 g/dl (6.1-8.1)
[2019-06-13] MEDS: MAGNESIUM OXIDE 400 MG TAB PO (09:53)
[2019-06-13] MEDS: MAGNESIUM SULFATE 2 GM/50 ML 50 ML IVPB (09:53)
[2019-06-13] MEDS: ERYTHROMYCIN 1 GM OPH OINT BOTH EYES ×4 (09:54→20:33)
[2019-06-13] MEDS: THIAMINE 100 MG TAB PO (09:54)
[2019-06-13] MEDS: CYANOCOBALAMIN 100 MCG TAB PO (09:54)
[2019-06-13] MEDS: FOLIC ACID 1 MG TAB PO (09:54)
[2019-06-13] MEDS: SPIRONOLACTONE 25 MG TAB PO (09:54)
[2019-06-13] MEDS: CHLORDIAZEPOXIDE 5 MG CAP PO (09:54)
[2019-06-14] MEDS: PANTOPRAZOLE (EC) 40 MG TAB PO ×2 (05:56→18:34)
[2019-06-14] MEDS: FUROSEMIDE 40 MG TAB PO (05:56)
[2019-06-14 06:19] LABS: ADD MAN DIFF? NO
[2019-06-14 06:22] LABS: ABNORMAL IP MESSAGE 1; BASOPHILS % 0.4 % (0.0-2.0); EOSINOPHILS # 0.1 10^3/ul (0.0-0.5); EOSINOPHILS % 0.6 % (0.0-7.0); HEMATOCRIT 30.4 % (42.0-52.0); HEMOGLOBIN 9.5 g/dl (14.0-18.0); LYMPHOCYTES # 0.8 10^3/ul (0.8-2.9); LYMPHOCYTES % 8.3 % (15.0-51.0); MEAN CORPUSCULAR HEMOGLOBIN 25.6 pg (29.0-33.0); MEAN CORPUSCULAR HGB CONC 31.3 g/dl (32.0-37.0); MEAN CORPUSCULAR VOLUME 81.9 fl (82.0-101.0); MEAN PLATELET VOLUME 10.8 fl (7.4-10.4); MONOCYTE # 1.2 10^3/ul (0.3-0.9); MONOCYTES % 11.9 % (0.0-11.0); NEUTROPHIL # 7.9 10^3/ul (1.6-7.5); NEUTROPHILS % 78.2 % (39.0-77.0); PLATELET COUNT 244 10^3/UL (140-415); POSITIVE DIFF @See below; RED BLOOD COUNT 3.71 10^6/ul (4.70-6.10); RED CELL DISTRIBUTION WIDTH 20.8 % (11.5-14.5)
[2019-06-14 06:22] LABS: WHITE BLOOD COUNT 10.1 10^3/ul (4.8-10.8)
[2019-06-14 06:58] LABS: ALANINE AMINOTRANSFERASE 41 IU/L (13-69); ALBUMIN 3.5 g/dl (3.3-4.9); ALBUMIN/GLOBULIN RATIO 0.85; ALKALINE PHOSPHATASE 130 IU/L (42-121); ANION GAP 8 (5-13); ASPARTATE AMINO TRANSFERASE 46 IU/L (15-46); BILIRUBIN,INDIRECT 0.6 mg/dl (0-1.1); BILIRUBIN,TOTAL 0.6 mg/dl (0.2-1.3); BLOOD UREA NITROGEN 17 mg/dl (7-20); CALCIUM 8.9 mg/dl (8.4-10.2); CARBON DIOXIDE 32 mmol/L (21-31); CHLORIDE 91 mmol/L (97-110); CREATININE 0.79 mg/dl (0.61-1.24); Estimated GFR > 60 mL/min (>60); GLUCOSE 99 mg/dl (70-220); POTASSIUM 3.7 mmol/L (3.5-5.1); SODIUM 131 mmol/L (135-144); TOTAL PROTEIN 7.6 g/dl (6.1-8.1)
[2019-06-14] MEDS ORDERED: MAGNESIUM SULFATE 2 GM/50 ML 50 ML IVPB (08:30)
[2019-06-14] MEDS: MAGNESIUM SULFATE 4 GM/100 ML 100 ML IVPB (10:44)
[2019-06-14] MEDS: FOLIC ACID 1 MG TAB PO (10:44)
[2019-06-14] MEDS: CHLORDIAZEPOXIDE 5 MG CAP PO (10:45)
[2019-06-14] MEDS: SPIRONOLACTONE 25 MG TAB PO (10:45)
[2019-06-14] MEDS: CYANOCOBALAMIN 100 MCG TAB PO (10:45)
[2019-06-14] MEDS: THIAMINE 100 MG TAB PO (10:45)
[2019-06-14] MEDS: MAGNESIUM OXIDE 400 MG TAB PO ×2 (10:45→21:49)
[2019-06-14] MEDS: ERYTHROMYCIN 1 GM OPH OINT BOTH EYES ×5 (10:46→23:31)
[2019-06-15] MEDS: PANTOPRAZOLE (EC) 40 MG TAB PO ×2 (06:23→17:22)
[2019-06-15] MEDS: FUROSEMIDE 40 MG TAB PO (06:24)
[2019-06-15 06:28] LABS: ADD MAN DIFF? NO
[2019-06-15 06:44] LABS: WHITE BLOOD COUNT 10.3 10^3/ul (4.8-10.8)
[2019-06-15 06:44] LABS: BASOPHIL # 0.1 10^3/ul (0.0-0.1); BASOPHILS % 0.6 % (0.0-2.0); EOSINOPHILS # 0.1 10^3/ul (0.0-0.5); EOSINOPHILS % 0.5 % (0.0-7.0); HEMATOCRIT 29.3 % (42.0-52.0); HEMOGLOBIN 9.2 g/dl (14.0-18.0); LYMPHOCYTES # 0.9 10^3/ul (0.8-2.9); MEAN CORPUSCULAR HEMOGLOBIN 25.4 pg (29.0-33.0); MEAN CORPUSCULAR HGB CONC 31.4 g/dl (32.0-37.0); MEAN CORPUSCULAR VOLUME 80.9 fl (82.0-101.0); MEAN PLATELET VOLUME 11.9 fl (7.4-10.4); MONOCYTE # 1.1 10^3/ul (0.3-0.9); MONOCYTES % 10.2 % (0.0-11.0); NEUTROPHIL # 8.2 10^3/ul (1.6-7.5); NEUTROPHILS % 79.2 % (39.0-77.0); PLATELET COUNT 285 10^3/UL (140-415); RED BLOOD COUNT 3.62 10^6/ul (4.70-6.10)
[2019-06-15 07:07] LABS: ALBUMIN 3.4 g/dl (3.3-4.9); ALBUMIN/GLOBULIN RATIO 0.87; ALKALINE PHOSPHATASE 173 IU/L (42-121); ANION GAP 9 (5-13); ASPARTATE AMINO TRANSFERASE 53 IU/L (15-46); BILIRUBIN,INDIRECT 0.5 mg/dl (0-1.1); BILIRUBIN,TOTAL 0.5 mg/dl (0.2-1.3); BLOOD UREA NITROGEN 17 mg/dl (7-20); CALCIUM 9.2 mg/dl (8.4-10.2); CARBON DIOXIDE 32 mmol/L (21-31); CHLORIDE 92 mmol/L (97-110); CREATININE 0.72 mg/dl (0.61-1.24); Estimated GFR > 60 mL/min (>60); GLUCOSE 102 mg/dl (70-220); MAGNESIUM 1.3 mg/dl (1.7-2.5); POTASSIUM 3.5 mmol/L (3.5-5.1); SODIUM 133 mmol/L (135-144); TOTAL PROTEIN 7.3 g/dl (6.1-8.1)
[2019-06-15 07:08] LABS: ALANINE AMINOTRANSFERASE 41 IU/L (13-69)
[2019-06-15] MEDS ORDERED: MAGNESIUM SULFATE 2 GM/50 ML 50 ML IVPB (08:00)
[2019-06-15] MEDS: SPIRONOLACTONE 25 MG TAB PO (09:03)
[2019-06-15] MEDS: THIAMINE 100 MG TAB PO (09:04)
[2019-06-15] MEDS: CYANOCOBALAMIN 100 MCG TAB PO (09:04)
[2019-06-15] MEDS: FOLIC ACID 1 MG TAB PO (09:04)
[2019-06-15] MEDS: ERYTHROMYCIN 1 GM OPH OINT BOTH EYES ×4 (09:04→21:40)
[2019-06-15] MEDS: MAGNESIUM OXIDE 400 MG TAB PO ×2 (09:04→21:40)
[2019-06-15] MEDS: MAGNESIUM SULFATE 3 GM in DEXTROSE 5% 100 ML IVPB (09:56)
[2019-06-15] MEDS ORDERED: MELATONIN 3 MG TABLET PO (16:30)
[2019-06-16 05:47] LABS: ADD MAN DIFF? NO
[2019-06-16 05:50] LABS: ABNORMAL IP MESSAGE 1; BASOPHIL # 0.1 10^3/ul (0.0-0.1); BASOPHILS % 0.5 % (0.0-2.0); EOSINOPHILS # 0.1 10^3/ul (0.0-0.5); EOSINOPHILS % 0.5 % (0.0-7.0); HEMATOCRIT 29.2 % (42.0-52.0); HEMOGLOBIN 9.2 g/dl (14.0-18.0); LYMPHOCYTES # 0.8 10^3/ul (0.8-2.9); LYMPHOCYTES % 7.5 % (15.0-51.0); MEAN CORPUSCULAR HEMOGLOBIN 25.7 pg (29.0-33.0); MEAN CORPUSCULAR HGB CONC 31.5 g/dl (32.0-37.0); MEAN CORPUSCULAR VOLUME 81.6 fl (82.0-101.0); MONOCYTE # 1.1 10^3/ul (0.3-0.9); MONOCYTES % 10.6 % (0.0-11.0); NEUTROPHIL # 8.4 10^3/ul (1.6-7.5); NEUTROPHILS % 80.5 % (39.0-77.0); PLATELET COUNT 289 10^3/UL (140-415); POSITIVE DIFF @See below; RED BLOOD COUNT 3.58 10^6/ul (4.70-6.10); RED CELL DISTRIBUTION WIDTH 20.8 % (11.5-14.5)
[2019-06-16 05:50] LABS: WHITE BLOOD COUNT 10.4 10^3/ul (4.8-10.8)
[2019-06-16] MEDS: PANTOPRAZOLE (EC) 40 MG TAB PO ×2 (06:05→18:30)
[2019-06-16] MEDS: FUROSEMIDE 40 MG TAB PO (06:06)
[2019-06-16 06:27] LABS: ANION GAP 9 (5-13); BLOOD UREA NITROGEN 21 mg/dl (7-20); CALCIUM 9.4 mg/dl (8.4-10.2); CARBON DIOXIDE 33 mmol/L (21-31); CHLORIDE 93 mmol/L (97-110); Estimated GFR > 60 mL/min (>60); GLUCOSE 107 mg/dl (70-220); MAGNESIUM 1.3 mg/dl (1.7-2.5); PHOSPHORUS 4.2 mg/dl (2.5-4.9); POTASSIUM 3.6 mmol/L (3.5-5.1); SODIUM 135 mmol/L (135-144)
[2019-06-16] MEDS: CYANOCOBALAMIN 100 MCG TAB PO (09:00)
[2019-06-16] MEDS: ERYTHROMYCIN 1 GM OPH OINT BOTH EYES ×4 (09:00→22:00)
[2019-06-16] MEDS: MAGNESIUM SULFATE 2 GM/50 ML 50 ML IVPB (09:11)
[2019-06-16] MEDS: MAGNESIUM OXIDE 400 MG TAB PO ×2 (09:14→22:00)
[2019-06-16] MEDS: POTASSIUM CHLORIDE (SR) 20 MEQ TAB PO (09:15)
[2019-06-16] MEDS: FOLIC ACID 1 MG TAB PO (09:15)
[2019-06-16] MEDS: SPIRONOLACTONE 25 MG TAB PO (09:15)
[2019-06-16] MEDS: THIAMINE 100 MG TAB PO (09:15)
[2019-06-17 04:59] LABS: ADD MAN DIFF? NO
[2019-06-17 05:14] LABS: WHITE BLOOD COUNT 10.4 10^3/ul (4.8-10.8)
[2019-06-17 05:14] LABS: BASOPHIL # 0.1 10^3/ul (0.0-0.1); BASOPHILS % 0.5 % (0.0-2.0); EOSINOPHILS # 0.1 10^3/ul (0.0-0.5); EOSINOPHILS % 0.8 % (0.0-7.0); HEMOGLOBIN 9.3 g/dl (14.0-18.0); LYMPHOCYTES % 9.8 % (15.0-51.0); MEAN CORPUSCULAR HEMOGLOBIN 25.6 pg (29.0-33.0); MEAN CORPUSCULAR VOLUME 82.6 fl (82.0-101.0); MEAN PLATELET VOLUME 11.1 fl (7.4-10.4); MONOCYTE # 0.9 10^3/ul (0.3-0.9); MONOCYTES % 8.6 % (0.0-11.0); NEUTROPHIL # 8.3 10^3/ul (1.6-7.5); NEUTROPHILS % 79.8 % (39.0-77.0); PLATELET COUNT 310 10^3/UL (140-415); RED BLOOD COUNT 3.63 10^6/ul (4.70-6.10); RED CELL DISTRIBUTION WIDTH 20.8 % (11.5-14.5)
[2019-06-17 05:33] LABS: ALBUMIN 3.6 g/dl (3.3-4.9); ANION GAP 11 (5-13); BLOOD UREA NITROGEN 23 mg/dl (7-20); CALCIUM 9.5 mg/dl (8.4-10.2); CARBON DIOXIDE 31 mmol/L (21-31); CHLORIDE 93 mmol/L (97-110); CREATININE 0.84 mg/dl (0.61-1.24); GLUCOSE 100 mg/dl (70-220); PHOSPHORUS 4.9 mg/dl (2.5-4.9); POTASSIUM 4.1 mmol/L (3.5-5.1); SODIUM 135 mmol/L (135-144)
[2019-06-17 05:38] LABS: MAGNESIUM 1.3 mg/dl (1.7-2.5)
[2019-06-17] MEDS: PANTOPRAZOLE (EC) 40 MG TAB PO ×2 (06:46→17:25)
[2019-06-17] MEDS: FUROSEMIDE 40 MG TAB PO (06:47)
[2019-06-17] MEDS: THIAMINE 100 MG TAB PO (09:58)
[2019-06-17] MEDS: FOLIC ACID 1 MG TAB PO (09:58)
[2019-06-17] MEDS: CYANOCOBALAMIN 100 MCG TAB PO (09:58)
[2019-06-17] MEDS: SPIRONOLACTONE 25 MG TAB PO (09:58)
[2019-06-17] MEDS: MAGNESIUM OXIDE 400 MG TAB PO (09:58)
[2019-06-17] MEDS: DOCUSATE SODIUM 100 MG CAP PO ×2 (09:58→21:06)
[2019-06-17] MEDS: POLYETHYLENE GLYCOL 17 GM PACKET GTB (09:59)
[2019-06-17] MEDS: ERYTHROMYCIN 1 GM OPH OINT BOTH EYES ×4 (09:59→21:07)
[2019-06-17] MEDS: MAGNESIUM CHLORIDE (SR) 64 MG TAB PO ×2 (12:28→21:06)
[2019-06-18 04:53] LABS: ADD MAN DIFF? NO
[2019-06-18 04:57] LABS: BASOPHIL # 0.1 10^3/ul (0.0-0.1); BASOPHILS % 0.7 % (0.0-2.0); EOSINOPHILS # 0.1 10^3/ul (0.0-0.5); EOSINOPHILS % 1.2 % (0.0-7.0); HEMATOCRIT 29.3 % (42.0-52.0); HEMOGLOBIN 9.1 g/dl (14.0-18.0); LYMPHOCYTES # 1.1 10^3/ul (0.8-2.9); LYMPHOCYTES % 10.7 % (15.0-51.0); MEAN CORPUSCULAR HEMOGLOBIN 25.2 pg (29.0-33.0); MEAN CORPUSCULAR HGB CONC 31.1 g/dl (32.0-37.0); MEAN CORPUSCULAR VOLUME 81.2 fl (82.0-101.0); MEAN PLATELET VOLUME 10.9 fl (7.4-10.4); MONOCYTE # 0.9 10^3/ul (0.3-0.9); MONOCYTES % 8.6 % (0.0-11.0); NEUTROPHILS % 78.4 % (39.0-77.0); PLATELET COUNT 361 10^3/UL (140-415); RED BLOOD COUNT 3.61 10^6/ul (4.70-6.10); RED CELL DISTRIBUTION WIDTH 20.8 % (11.5-14.5)
[2019-06-18 04:57] LABS: WHITE BLOOD COUNT 10.3 10^3/ul (4.8-10.8)
[2019-06-18 05:48] LABS: MAGNESIUM 1.4 mg/dl (1.7-2.5)
[2019-06-18 05:51] LABS: ALBUMIN 3.7 g/dl (3.3-4.9); ANION GAP 10 (5-13); BLOOD UREA NITROGEN 24 mg/dl (7-20); CALCIUM 9.8 mg/dl (8.4-10.2); CARBON DIOXIDE 31 mmol/L (21-31); CHLORIDE 93 mmol/L (97-110); CREATININE 0.81 mg/dl (0.61-1.24); GLUCOSE 102 mg/dl (70-220); PHOSPHORUS 4.4 mg/dl (2.5-4.9); POTASSIUM 4.3 mmol/L (3.5-5.1); SODIUM 134 mmol/L (135-144)
[2019-06-18] MEDS: FUROSEMIDE 40 MG TAB PO (06:14)
[2019-06-18] MEDS: PANTOPRAZOLE (EC) 40 MG TAB PO ×2 (06:14→17:57)
[2019-06-18] MEDS: SPIRONOLACTONE 25 MG TAB PO (09:49)
[2019-06-18] MEDS: DOCUSATE SODIUM 100 MG CAP PO ×2 (09:49→20:43)
[2019-06-18] MEDS: MAGNESIUM CHLORIDE (SR) 64 MG TAB PO ×2 (09:49→20:43)
[2019-06-18] MEDS: FOLIC ACID 1 MG TAB PO (09:49)
[2019-06-18] MEDS: THIAMINE 100 MG TAB PO (09:49)
[2019-06-18] MEDS: POLYETHYLENE GLYCOL 17 GM PACKET GTB (09:50)
[2019-06-18] MEDS: CYANOCOBALAMIN 100 MCG TAB PO (09:50)
[2019-06-18] MEDS: ERYTHROMYCIN 1 GM OPH OINT BOTH EYES ×2 (09:54→12:33)
[2019-06-18] MEDS: MAGNESIUM SULFATE 3 GM in DEXTROSE 5% 100 ML IVPB (12:28)
[2019-06-19 05:39] LABS: ADD MAN DIFF? NO
[2019-06-19 05:56] LABS: BASOPHIL # 0.1 10^3/ul (0.0-0.1); BASOPHILS % 0.6 % (0.0-2.0); EOSINOPHILS # 0.1 10^3/ul (0.0-0.5); EOSINOPHILS % 1.1 % (0.0-7.0); HEMATOCRIT 30.1 % (42.0-52.0); HEMOGLOBIN 9.4 g/dl (14.0-18.0); LYMPHOCYTES # 1.1 10^3/ul (0.8-2.9); LYMPHOCYTES % 10.7 % (15.0-51.0); MEAN CORPUSCULAR HEMOGLOBIN 25.6 pg (29.0-33.0); MEAN CORPUSCULAR HGB CONC 31.2 g/dl (32.0-37.0); MEAN PLATELET VOLUME 11.1 fl (7.4-10.4); MONOCYTE # 0.9 10^3/ul (0.3-0.9); MONOCYTES % 8.9 % (0.0-11.0); NEUTROPHIL # 7.9 10^3/ul (1.6-7.5); NEUTROPHILS % 78.2 % (39.0-77.0); PLATELET COUNT 367 10^3/UL (140-415); RED BLOOD COUNT 3.67 10^6/ul (4.70-6.10); RED CELL DISTRIBUTION WIDTH 20.8 % (11.5-14.5)
[2019-06-19 05:56] LABS: WHITE BLOOD COUNT 10.1 10^3/ul (4.8-10.8)
[2019-06-19] MEDS: PANTOPRAZOLE (EC) 40 MG TAB PO ×2 (05:59→18:45)
[2019-06-19] MEDS: FUROSEMIDE 40 MG TAB PO (06:00)
[2019-06-19 06:08] LABS: MAGNESIUM 1.5 mg/dl (1.7-2.5)
[2019-06-19 06:19] LABS: ALBUMIN 3.5 g/dl (3.3-4.9); ANION GAP 10 (5-13); BLOOD UREA NITROGEN 22 mg/dl (7-20); CALCIUM 9.6 mg/dl (8.4-10.2); CARBON DIOXIDE 32 mmol/L (21-31); CHLORIDE 91 mmol/L (97-110); CREATININE 0.79 mg/dl (0.61-1.24); GLUCOSE 101 mg/dl (70-220); PHOSPHORUS 4.3 mg/dl (2.5-4.9); POTASSIUM 4.3 mmol/L (3.5-5.1); SODIUM 133 mmol/L (135-144)
[2019-06-19] MEDS: FOLIC ACID 1 MG TAB PO (09:12)
[2019-06-19] MEDS: SPIRONOLACTONE 25 MG TAB PO (09:12)
[2019-06-19] MEDS: MAGNESIUM CHLORIDE (SR) 64 MG TAB PO ×2 (09:12→21:02)
[2019-06-19] MEDS: THIAMINE 100 MG TAB PO (09:12)
[2019-06-19] MEDS: DOCUSATE SODIUM 100 MG CAP PO ×2 (09:12→21:02)
[2019-06-19] MEDS: POLYETHYLENE GLYCOL 17 GM PACKET GTB (09:13)
[2019-06-19] MEDS: CYANOCOBALAMIN 100 MCG TAB PO (09:13)
[2019-06-19] MEDS: MAGNESIUM SULFATE 2 GM/50 ML 50 ML IVPB (15:41)
[2019-06-20 05:40] LABS: MAGNESIUM 1.7 mg/dl (1.7-2.5)
[2019-06-20] MEDS: PANTOPRAZOLE (EC) 40 MG TAB PO ×2 (05:40→18:43)
[2019-06-20] MEDS: FUROSEMIDE 40 MG TAB PO (05:40)
[2019-06-20] MEDS: POLYETHYLENE GLYCOL 17 GM PACKET GTB (09:00)
[2019-06-20] MEDS: DOCUSATE SODIUM 100 MG CAP PO ×2 (09:03→20:58)
[2019-06-20] MEDS: MAGNESIUM CHLORIDE (SR) 64 MG TAB PO ×2 (09:04→20:58)
[2019-06-20] MEDS: CYANOCOBALAMIN 100 MCG TAB PO (09:04)
[2019-06-20] MEDS: FOLIC ACID 1 MG TAB PO (09:04)
[2019-06-20] MEDS: SPIRONOLACTONE 25 MG TAB PO (09:04)
[2019-06-20] MEDS: THIAMINE 100 MG TAB PO (09:04)
[2019-06-21] MEDS: PANTOPRAZOLE (EC) 40 MG TAB PO ×2 (06:07→18:27)
[2019-06-21] MEDS: FUROSEMIDE 40 MG TAB PO (06:08)
[2019-06-21] MEDS: DOCUSATE SODIUM 100 MG CAP PO ×2 (09:27→21:15)
[2019-06-21] MEDS: THIAMINE 100 MG TAB PO (09:27)
[2019-06-21] MEDS: MAGNESIUM CHLORIDE (SR) 64 MG TAB PO ×2 (09:27→21:15)
[2019-06-21] MEDS: CYANOCOBALAMIN 100 MCG TAB PO (09:27)
[2019-06-21] MEDS: POLYETHYLENE GLYCOL 17 GM PACKET GTB (09:28)
[2019-06-21] MEDS: FOLIC ACID 1 MG TAB PO (09:28)
[2019-06-21] MEDS: SPIRONOLACTONE 25 MG TAB PO (09:28)
[2019-06-22] MEDS: PANTOPRAZOLE (EC) 40 MG TAB PO ×2 (05:41→17:33)
[2019-06-22] MEDS: FUROSEMIDE 40 MG TAB PO (05:43)
[2019-06-22 06:28] LABS: ANION GAP 8 (5-13); BLOOD UREA NITROGEN 18 mg/dl (7-20); CALCIUM 9.4 mg/dl (8.4-10.2); CARBON DIOXIDE 30 mmol/L (21-31); CHLORIDE 93 mmol/L (97-110); CREATININE 0.75 mg/dl (0.61-1.24); Estimated GFR > 60 mL/min (>60); GLUCOSE 90 mg/dl (70-220); MAGNESIUM 1.3 mg/dl (1.7-2.5); PHOSPHORUS 4.3 mg/dl (2.5-4.9); POTASSIUM 3.8 mmol/L (3.5-5.1); SODIUM 131 mmol/L (135-144)
[2019-06-22] MEDS: FOLIC ACID 1 MG TAB PO (08:34)
[2019-06-22] MEDS: CYANOCOBALAMIN 100 MCG TAB PO (08:35)
[2019-06-22] MEDS: MAGNESIUM CHLORIDE (SR) 64 MG TAB PO ×2 (08:35→20:28)
[2019-06-22] MEDS: THIAMINE 100 MG TAB PO (08:35)
[2019-06-22] MEDS: DOCUSATE SODIUM 100 MG CAP PO ×2 (08:35→20:28)
[2019-06-22] MEDS: SPIRONOLACTONE 25 MG TAB PO (08:36)
[2019-06-22] MEDS: MAGNESIUM SULFATE 2 GM/50 ML 50 ML IVPB (08:36)
[2019-06-22] MEDS: POLYETHYLENE GLYCOL 17 GM PACKET GTB (08:36)
[2019-06-22] MEDS: MAGNESIUM SULFATE 3 GM in DEXTROSE 5% 100 ML IVPB (16:30)
[2019-06-23] MEDS: PANTOPRAZOLE (EC) 40 MG TAB PO ×2 (05:27→18:18)
[2019-06-23] MEDS: FUROSEMIDE 40 MG TAB PO (05:28)
[2019-06-23 05:39] LABS: ADD MAN DIFF? NO
[2019-06-23 05:44] LABS: BASOPHIL # 0.1 10^3/ul (0.0-0.1); BASOPHILS % 0.5 % (0.0-2.0); EOSINOPHILS # 0.1 10^3/ul (0.0-0.5); EOSINOPHILS % 1.3 % (0.0-7.0); HEMATOCRIT 29.5 % (42.0-52.0); HEMOGLOBIN 9.3 g/dl (14.0-18.0); LYMPHOCYTES # 1.2 10^3/ul (0.8-2.9); LYMPHOCYTES % 12.2 % (15.0-51.0); MEAN CORPUSCULAR HEMOGLOBIN 25.8 pg (29.0-33.0); MEAN CORPUSCULAR HGB CONC 31.5 g/dl (32.0-37.0); MEAN CORPUSCULAR VOLUME 81.7 fl (82.0-101.0); MEAN PLATELET VOLUME 11.1 fl (7.4-10.4); MONOCYTE # 0.9 10^3/ul (0.3-0.9); MONOCYTES % 9.2 % (0.0-11.0); NEUTROPHIL # 7.6 10^3/ul (1.6-7.5); NEUTROPHILS % 76.3 % (39.0-77.0); PLATELET COUNT 414 10^3/UL (140-415); RED BLOOD COUNT 3.61 10^6/ul (4.70-6.10); RED CELL DISTRIBUTION WIDTH 19.6 % (11.5-14.5)
[2019-06-23 06:08] LABS: ANION GAP 8 (5-13); BLOOD UREA NITROGEN 19 mg/dl (7-20); CALCIUM 9.6 mg/dl (8.4-10.2); CARBON DIOXIDE 30 mmol/L (21-31); CHLORIDE 94 mmol/L (97-110); CREATININE 0.76 mg/dl (0.61-1.24); Estimated GFR > 60 mL/min (>60); GLUCOSE 103 mg/dl (70-220); MAGNESIUM 1.5 mg/dl (1.7-2.5); PHOSPHORUS 4.3 mg/dl (2.5-4.9); POTASSIUM 4.4 mmol/L (3.5-5.1); SODIUM 132 mmol/L (135-144)
[2019-06-23] MEDS: MAGNESIUM CHLORIDE (SR) 64 MG TAB PO ×2 (09:24→21:09)
[2019-06-23] MEDS: CYANOCOBALAMIN 100 MCG TAB PO (09:24)
[2019-06-23] MEDS: SPIRONOLACTONE 25 MG TAB PO (09:24)
[2019-06-23] MEDS: POLYETHYLENE GLYCOL 17 GM PACKET GTB (09:24)
[2019-06-23] MEDS: THIAMINE 100 MG TAB PO (09:24)
[2019-06-23] MEDS: MAGNESIUM SULFATE 2 GM/50 ML 50 ML IVPB (09:25)
[2019-06-23] MEDS: DOCUSATE SODIUM 100 MG CAP PO ×2 (09:25→21:09)
[2019-06-23] MEDS: FOLIC ACID 1 MG TAB PO (09:25)
[2019-06-24] MEDS: PANTOPRAZOLE (EC) 40 MG TAB PO ×2 (06:01→18:09)
[2019-06-24] MEDS: FUROSEMIDE 40 MG TAB PO (06:01)
[2019-06-24] MEDS: CYANOCOBALAMIN 100 MCG TAB PO (08:38)
[2019-06-24] MEDS: FOLIC ACID 1 MG TAB PO (08:38)
[2019-06-24] MEDS: MAGNESIUM CHLORIDE (SR) 64 MG TAB PO ×2 (08:38→20:58)
[2019-06-24] MEDS: THIAMINE 100 MG TAB PO (08:39)
[2019-06-24] MEDS: DOCUSATE SODIUM 100 MG CAP PO ×2 (08:39→20:58)
[2019-06-24] MEDS: SPIRONOLACTONE 25 MG TAB PO (08:39)
[2019-06-24] MEDS: POLYETHYLENE GLYCOL 17 GM PACKET GTB (08:39)
[2019-06-25] MEDS: FUROSEMIDE 40 MG TAB PO (05:04)
[2019-06-25] MEDS: PANTOPRAZOLE (EC) 40 MG TAB PO ×2 (05:04→17:00)
[2019-06-25 05:52] LABS: ANION GAP 10 (5-13); BLOOD UREA NITROGEN 22 mg/dl (7-20); CALCIUM 9.5 mg/dl (8.4-10.2); CARBON DIOXIDE 26 mmol/L (21-31); CHLORIDE 98 mmol/L (97-110); CREATININE 0.64 mg/dl (0.61-1.24); Estimated GFR > 60 mL/min (>60); GLUCOSE 98 mg/dl (70-220); MAGNESIUM 1.3 mg/dl (1.7-2.5); PHOSPHORUS 4.5 mg/dl (2.5-4.9); POTASSIUM 3.9 mmol/L (3.5-5.1); SODIUM 134 mmol/L (135-144)
[2019-06-25] MEDS: SPIRONOLACTONE 25 MG TAB PO (08:14)
[2019-06-25] MEDS: DOCUSATE SODIUM 100 MG CAP PO ×2 (08:14→20:22)
[2019-06-25] MEDS: POLYETHYLENE GLYCOL 17 GM PACKET GTB (08:15)
[2019-06-25] MEDS: THIAMINE 100 MG TAB PO (08:15)
[2019-06-25] MEDS: MAGNESIUM CHLORIDE (SR) 64 MG TAB PO ×2 (08:15→20:20)
[2019-06-25] MEDS: FOLIC ACID 1 MG TAB PO (08:15)
[2019-06-25] MEDS: CYANOCOBALAMIN 100 MCG TAB PO (10:02)
[2019-06-25] MEDS: MAGNESIUM SULFATE 2 GM/50 ML 50 ML IVPB (10:02)
[2019-06-26] MEDS: FUROSEMIDE 40 MG TAB PO (07:40)
[2019-06-26] MEDS: PANTOPRAZOLE (EC) 40 MG TAB PO ×2 (07:40→18:23)
[2019-06-26] MEDS: FOLIC ACID 1 MG TAB PO (09:21)
[2019-06-26] MEDS: MAGNESIUM CHLORIDE (SR) 64 MG TAB PO ×2 (09:21→19:57)
[2019-06-26] MEDS: DOCUSATE SODIUM 100 MG CAP PO (09:21)
[2019-06-26] MEDS: THIAMINE 100 MG TAB PO (09:21)
[2019-06-26] MEDS: SPIRONOLACTONE 25 MG TAB PO (09:21)
[2019-06-26] MEDS: POLYETHYLENE GLYCOL 17 GM PACKET GTB (09:21)
[2019-06-26] MEDS: CYANOCOBALAMIN 100 MCG TAB PO (09:21)
[2019-06-27] MEDS: FUROSEMIDE 40 MG TAB PO (05:31)
[2019-06-27] MEDS: PANTOPRAZOLE (EC) 40 MG TAB PO ×2 (05:31→17:56)
[2019-06-27 06:14] LABS: ALBUMIN 3.8 g/dl (3.3-4.9); ANION GAP 10 (5-13); BLOOD UREA NITROGEN 19 mg/dl (7-20); CALCIUM 9.4 mg/dl (8.4-10.2); CARBON DIOXIDE 25 mmol/L (21-31); CHLORIDE 99 mmol/L (97-110); CREATININE 0.88 mg/dl (0.61-1.24); GLUCOSE 107 mg/dl (70-220); PHOSPHORUS 4.5 mg/dl (2.5-4.9); POTASSIUM 3.8 mmol/L (3.5-5.1); SODIUM 134 mmol/L (135-144)
[2019-06-27 06:18] LABS: MAGNESIUM 1.2 mg/dl (1.7-2.5)
[2019-06-27] MEDS: SPIRONOLACTONE 25 MG TAB PO (09:13)
[2019-06-27] MEDS: FOLIC ACID 1 MG TAB PO (09:13)
[2019-06-27] MEDS: THIAMINE 100 MG TAB PO (09:13)
[2019-06-27] MEDS: MAGNESIUM CHLORIDE (SR) 64 MG TAB PO ×2 (09:13→20:39)
[2019-06-27] MEDS: POLYETHYLENE GLYCOL 17 GM PACKET GTB (09:13)
[2019-06-27] MEDS: CYANOCOBALAMIN 100 MCG TAB PO (09:13)
[2019-06-27] MEDS: MAGNESIUM SULFATE 2 GM/50 ML 50 ML IVPB (09:13)
[2019-06-27] MEDS: DOCUSATE SODIUM 100 MG CAP PO (17:58)
[2019-06-28 05:36] LABS: MAGNESIUM 1.4 mg/dl (1.7-2.5)
[2019-06-28] MEDS: FUROSEMIDE 40 MG TAB PO (05:46)
[2019-06-28] MEDS: PANTOPRAZOLE (EC) 40 MG TAB PO ×2 (05:46→18:09)
[2019-06-28] MEDS: DOCUSATE SODIUM 100 MG CAP PO (05:50)
[2019-06-28] MEDS: SPIRONOLACTONE 25 MG TAB PO (08:58)
[2019-06-28] MEDS: CYANOCOBALAMIN 100 MCG TAB PO (08:58)
[2019-06-28] MEDS: MAGNESIUM CHLORIDE (SR) 64 MG TAB PO ×2 (08:58→20:12)
[2019-06-28] MEDS: THIAMINE 100 MG TAB PO (08:58)
[2019-06-28] MEDS: FOLIC ACID 1 MG TAB PO (08:58)
[2019-06-28] MEDS: POLYETHYLENE GLYCOL 17 GM PACKET GTB (08:58)
[2019-06-28] MEDS: LACTULOSE 30ML CUP PO (11:25)
[2019-06-28] MEDS: MAGNESIUM SULFATE 2 GM/50 ML 50 ML IVPB (11:26)
[2019-06-29] MEDS: FUROSEMIDE 40 MG TAB PO (05:32)
[2019-06-29] MEDS: PANTOPRAZOLE (EC) 40 MG TAB PO ×2 (05:32→17:43)
[2019-06-29 05:45] LABS: MAGNESIUM 1.5 mg/dl (1.7-2.5)
[2019-06-29] MEDS: POLYETHYLENE GLYCOL 17 GM PACKET GTB (09:41)
[2019-06-29] MEDS: THIAMINE 100 MG TAB PO (09:41)
[2019-06-29] MEDS: MAGNESIUM CHLORIDE (SR) 64 MG TAB PO ×2 (09:41→20:19)
[2019-06-29] MEDS: FOLIC ACID 1 MG TAB PO (09:41)
[2019-06-29] MEDS: SPIRONOLACTONE 25 MG TAB PO (09:41)
[2019-06-29] MEDS: CYANOCOBALAMIN 100 MCG TAB PO (09:41)
[2019-06-29] MEDS: MAGNESIUM SULFATE 2 GM/50 ML 50 ML IVPB (09:43)
[2019-06-29] MEDS: ACETAMINOPHEN 650 MG SUPP PR (15:44)
[2019-06-30 05:28] LABS: MAGNESIUM 1.4 mg/dl (1.7-2.5)
[2019-06-30] MEDS: FUROSEMIDE 40 MG TAB PO (06:15)
[2019-06-30] MEDS: PANTOPRAZOLE (EC) 40 MG TAB PO ×2 (06:15→17:49)
[2019-06-30] MEDS: THIAMINE 100 MG TAB PO (08:42)
[2019-06-30] MEDS: POLYETHYLENE GLYCOL 17 GM PACKET GTB (08:42)
[2019-06-30] MEDS: FOLIC ACID 1 MG TAB PO (08:42)
[2019-06-30] MEDS: MAGNESIUM CHLORIDE (SR) 64 MG TAB PO ×2 (08:42→22:13)
[2019-06-30] MEDS: SPIRONOLACTONE 25 MG TAB PO (08:42)
[2019-06-30] MEDS: CYANOCOBALAMIN 100 MCG TAB PO (08:42)
[2019-06-30] MEDS: MAGNESIUM SULFATE 2 GM/50 ML 50 ML IVPB (08:42)
[2019-07-01 05:28] LABS: MAGNESIUM 1.3 mg/dl (1.7-2.5)
[2019-07-01] MEDS: PANTOPRAZOLE (EC) 40 MG TAB PO ×2 (06:32→17:39)
[2019-07-01] MEDS: FUROSEMIDE 40 MG TAB PO (06:32)
[2019-07-01] MEDS: MAGNESIUM SULFATE 4 GM/100 ML 100 ML IVPB (08:41)
[2019-07-01] MEDS: CYANOCOBALAMIN 100 MCG TAB PO (08:41)
[2019-07-01] MEDS: MAGNESIUM CHLORIDE (SR) 64 MG TAB PO ×4 (08:41→21:12)
[2019-07-01] MEDS: THIAMINE 100 MG TAB PO (08:41)
[2019-07-01] MEDS: POLYETHYLENE GLYCOL 17 GM PACKET GTB (08:41)
[2019-07-01] MEDS: FOLIC ACID 1 MG TAB PO (08:41)
[2019-07-01] MEDS: SPIRONOLACTONE 25 MG TAB PO (08:41)
[2019-07-02 05:35] LABS: ALBUMIN 3.3 g/dl (3.3-4.9); ANION GAP 8 (5-13); BLOOD UREA NITROGEN 16 mg/dl (7-20); CALCIUM 9.5 mg/dl (8.4-10.2); CARBON DIOXIDE 25 mmol/L (21-31); CHLORIDE 100 mmol/L (97-110); CREATININE 0.66 mg/dl (0.61-1.24); GLUCOSE 103 mg/dl (70-220); PHOSPHORUS 4.8 mg/dl (2.5-4.9); POTASSIUM 4.3 mmol/L (3.5-5.1); SODIUM 133 mmol/L (135-144)
[2019-07-02 05:45] LABS: MAGNESIUM 1.5 mg/dl (1.7-2.5)
[2019-07-02] MEDS: FUROSEMIDE 40 MG TAB PO (05:47)
[2019-07-02] MEDS: PANTOPRAZOLE (EC) 40 MG TAB PO (05:48)
[2019-07-02] MEDS: FOLIC ACID 1 MG TAB PO (09:04)
[2019-07-02] MEDS: POLYETHYLENE GLYCOL 17 GM PACKET GTB (09:04)
[2019-07-02] MEDS: MAGNESIUM CHLORIDE (SR) 64 MG TAB PO ×3 (09:04→21:06)
[2019-07-02] MEDS: CYANOCOBALAMIN 100 MCG TAB PO (09:04)
[2019-07-02] MEDS: THIAMINE 100 MG TAB PO (09:04)
[2019-07-02] MEDS: SPIRONOLACTONE 25 MG TAB PO (09:04)
[2019-07-02] MEDS ORDERED: MAGNESIUM SULFATE 4 GM/100 ML 100 ML IVPB ×2 (09:30→10:00)
[2019-07-02] MEDS: MAGNESIUM SULFATE 2 GM/50 ML 50 ML IVPB (10:16)
[2019-07-02] MEDS: MAGNESIUM SULFATE 4 GM/100 ML 100 ML IVPB (12:15)
[2019-07-02] MEDS: FAMOTIDINE 20 MG TAB PO (21:06)
[2019-07-03 04:55] LABS: ADD MAN DIFF? NO
[2019-07-03 04:55] LABS: WHITE BLOOD COUNT 9.4 10^3/ul (4.8-10.8)
[2019-07-03 04:56] LABS: BASOPHILS % 0.3 % (0.0-2.0); EOSINOPHILS # 0.2 10^3/ul (0.0-0.5); EOSINOPHILS % 1.6 % (0.0-7.0); HEMATOCRIT 27.9 % (42.0-52.0); HEMOGLOBIN 8.8 g/dl (14.0-18.0); LYMPHOCYTES # 1.4 10^3/ul (0.8-2.9); LYMPHOCYTES % 15.2 % (15.0-51.0); MEAN CORPUSCULAR HEMOGLOBIN 25.4 pg (29.0-33.0); MEAN CORPUSCULAR HGB CONC 31.5 g/dl (32.0-37.0); MEAN CORPUSCULAR VOLUME 80.4 fl (82.0-101.0); MEAN PLATELET VOLUME 9.8 fl (7.4-10.4); MONOCYTE # 0.7 10^3/ul (0.3-0.9); MONOCYTES % 7.8 % (0.0-11.0); NEUTROPHILS % 74.7 % (39.0-77.0); PLATELET COUNT 279 10^3/UL (140-415); RED BLOOD COUNT 3.47 10^6/ul (4.70-6.10); RED CELL DISTRIBUTION WIDTH 18.1 % (11.5-14.5)
[2019-07-03 05:24] LABS: ALBUMIN 3.6 g/dl (3.3-4.9); ANION GAP 10 (5-13); BLOOD UREA NITROGEN 15 mg/dl (7-20); CALCIUM 9.3 mg/dl (8.4-10.2); CARBON DIOXIDE 25 mmol/L (21-31); CHLORIDE 97 mmol/L (97-110); CREATININE 0.72 mg/dl (0.61-1.24); GLUCOSE 124 mg/dl (70-220); MAGNESIUM 1.7 mg/dl (1.7-2.5); PHOSPHORUS 3.9 mg/dl (2.5-4.9); POTASSIUM 3.8 mmol/L (3.5-5.1); SODIUM 132 mmol/L (135-144)
[2019-07-03] MEDS: FUROSEMIDE 40 MG TAB PO (05:25)
[2019-07-03] MEDS: POLYETHYLENE GLYCOL 17 GM PACKET GTB (09:04)
[2019-07-03] MEDS: SPIRONOLACTONE 25 MG TAB PO (09:05)
[2019-07-03] MEDS: MAGNESIUM CHLORIDE (SR) 64 MG TAB PO ×3 (09:05→21:25)
[2019-07-03] MEDS: CYANOCOBALAMIN 100 MCG TAB PO (09:05)
[2019-07-03] MEDS: FAMOTIDINE 20 MG TAB PO ×2 (09:05→21:25)
[2019-07-03] MEDS: THIAMINE 100 MG TAB PO (09:05)
[2019-07-03] MEDS: FOLIC ACID 1 MG TAB PO (09:05)
[2019-07-04] MEDS: FUROSEMIDE 40 MG TAB PO (05:42)
[2019-07-04] MEDS: CYANOCOBALAMIN 100 MCG TAB PO (09:15)
[2019-07-04] MEDS: SPIRONOLACTONE 25 MG TAB PO (09:15)
[2019-07-04] MEDS: FOLIC ACID 1 MG TAB PO (09:15)
[2019-07-04] MEDS: FAMOTIDINE 20 MG TAB PO ×2 (09:15→21:40)
[2019-07-04] MEDS: MAGNESIUM CHLORIDE (SR) 64 MG TAB PO ×3 (09:15→21:40)
[2019-07-04] MEDS: POLYETHYLENE GLYCOL 17 GM PACKET GTB (09:15)
[2019-07-04] MEDS: THIAMINE 100 MG TAB PO (09:16)
[2019-07-05] MEDS: FUROSEMIDE 40 MG TAB PO (06:27)
[2019-07-05] MEDS: POLYETHYLENE GLYCOL 17 GM PACKET GTB (09:27)
[2019-07-05] MEDS: FOLIC ACID 1 MG TAB PO (09:27)
[2019-07-05] MEDS: CYANOCOBALAMIN 100 MCG TAB PO (09:27)
[2019-07-05] MEDS: MAGNESIUM CHLORIDE (SR) 64 MG TAB PO ×3 (09:27→20:22)
[2019-07-05] MEDS: THIAMINE 100 MG TAB PO (09:27)
[2019-07-05] MEDS: FAMOTIDINE 20 MG TAB PO ×2 (09:27→20:22)
[2019-07-05] MEDS: SPIRONOLACTONE 25 MG TAB PO (09:27)
[2019-07-06] MEDS: FUROSEMIDE 40 MG TAB PO (05:41)
[2019-07-06] MEDS: SPIRONOLACTONE 25 MG TAB PO (08:53)
[2019-07-06] MEDS: MAGNESIUM CHLORIDE (SR) 64 MG TAB PO ×3 (08:53→20:32)
[2019-07-06] MEDS: FAMOTIDINE 20 MG TAB PO ×2 (08:54→20:32)
[2019-07-06] MEDS: FOLIC ACID 1 MG TAB PO (08:54)
[2019-07-06] MEDS: CYANOCOBALAMIN 100 MCG TAB PO (08:54)
[2019-07-06] MEDS: THIAMINE 100 MG TAB PO (08:55)
[2019-07-06] MEDS: POLYETHYLENE GLYCOL 17 GM PACKET GTB (09:01)
[2019-07-07 05:02] LABS: ADD MAN DIFF? NO
[2019-07-07 05:05] LABS: BASOPHILS % 0.2 % (0.0-2.0); EOSINOPHILS # 0.2 10^3/ul (0.0-0.5); EOSINOPHILS % 1.6 % (0.0-7.0); HEMATOCRIT 30.6 % (42.0-52.0); HEMOGLOBIN 9.5 g/dl (14.0-18.0); LYMPHOCYTES # 1.9 10^3/ul (0.8-2.9); MEAN CORPUSCULAR VOLUME 80.5 fl (82.0-101.0); MEAN PLATELET VOLUME 10.3 fl (7.4-10.4); MONOCYTE # 0.8 10^3/ul (0.3-0.9); MONOCYTES % 8.4 % (0.0-11.0); NEUTROPHIL # 6.5 10^3/ul (1.6-7.5); NEUTROPHILS % 69.4 % (39.0-77.0); PLATELET COUNT 260 10^3/UL (140-415); RED CELL DISTRIBUTION WIDTH 18.3 % (11.5-14.5)
[2019-07-07 05:05] LABS: WHITE BLOOD COUNT 9.4 10^3/ul (4.8-10.8)
[2019-07-07 05:23] LABS: ANION GAP 7 (5-13); BLOOD UREA NITROGEN 22 mg/dl (7-20); CALCIUM 9.7 mg/dl (8.4-10.2); CARBON DIOXIDE 28 mmol/L (21-31); CHLORIDE 102 mmol/L (97-110); CREATININE 0.73 mg/dl (0.61-1.24); Estimated GFR > 60 mL/min (>60); GLUCOSE 103 mg/dl (70-220); MAGNESIUM 1.4 mg/dl (1.7-2.5); PHOSPHORUS 5.6 mg/dl (2.5-4.9); POTASSIUM 5.1 mmol/L (3.5-5.1); SODIUM 137 mmol/L (135-144)
[2019-07-07] MEDS: FUROSEMIDE 40 MG TAB PO (05:58)
[2019-07-07] MEDS: POLYETHYLENE GLYCOL 17 GM PACKET GTB (09:36)
[2019-07-07] MEDS: MAGNESIUM CHLORIDE (SR) 64 MG TAB PO ×2 (09:36→13:50)
[2019-07-07] MEDS: FAMOTIDINE 20 MG TAB PO (09:37)
[2019-07-07] MEDS: THIAMINE 100 MG TAB PO (09:37)
[2019-07-07] MEDS: FOLIC ACID 1 MG TAB PO (09:37)
[2019-07-07] MEDS: SPIRONOLACTONE 25 MG TAB PO (09:37)
[2019-07-07] MEDS: CYANOCOBALAMIN 100 MCG TAB PO (09:37)
== END 2019-07-07 14:28 | disposition home or self-care (01) | DRG 381 ==
LOC: 6WM 06-09 18:38 → MS1 06-16 00:19 → 6WM 06-04 16:35 → E/R 09:21 → ICU 12:39
PROC: 0W3P8ZZ Control Bleeding in Gastrointestinal Tract, Via Natural or Artificial Opening Endoscopic (ICD-10-PCS; principal; 2019-06-04 12:00)
PROC: 30233K1 Transfusion of Nonautologous Frozen Plasma into Peripheral Vein, Percutaneous Approach (ICD-10-PCS; 2019-06-04 12:08)
PROC: 30233N1 Transfusion of Nonautologous Red Blood Cells into Peripheral Vein, Percutaneous Approach (ICD-10-PCS; 2019-06-04 12:08)
PROC: 0DJD8ZZ Inspection of Lower Intestinal Tract, Via Natural or Artificial Opening Endoscopic (ICD-10-PCS; 2019-06-04 12:08)
PROC: 0W9G3ZZ Drainage of Peritoneal Cavity, Percutaneous Approach (ICD-10-PCS; 2019-06-04 12:08)
DX: K22.11 Ulcer of esophagus with bleeding (principal); D62 Acute posthemorrhagic anemia; E87.2 Acidosis; K76.6 Portal hypertension; E87.1 Hypo-osmolality and hyponatremia; F10.239 Alcohol dependence with withdrawal, unspecified; G40.89 Other seizures; D12.5 Benign neoplasm of sigmoid colon; E87.6 Hypokalemia; E83.42 Hypomagnesemia; F32.9 Major depressive disorder, single episode, unspecified; K70.31 Alcoholic cirrhosis of liver with ascites; K70.10 Alcoholic hepatitis without ascites; K31.89 Other diseases of stomach and duodenum; N28.89 Other specified disorders of kidney and ureter; R62.7 Adult failure to thrive; Q27.33 Arteriovenous malformation of digestive system vessel; Z59.0 Homelessness; Z68.22 Body mass index [BMI] 22.0-22.9, adult
CPT/HCPCS: 36415; 36430; 70450; 71045; 76705; 80048; 80053; 80069; 80076; 80307; 81001; 81003; 82043; 82140; 82550; 82553; 83605; 83735; 84100; 84132; 84155; 84300; 84484; 85014; 85018; 85025; 85610; 85730; 86850; 86900; 86901; 86920; 87081; 92526; 92610; 93005; 95819; 96374; 96375; 97110; 97116; 97162; 97530; 99285-25